=== PATIENT | female | born 1990 | race Caucasian/White ===

== ENCOUNTER 2018-12-20 05:28 | Emergency (ER) | payer OTHER ==
[~2018-12-20] VITALS: Ht 160 cm; Wt 44.5 kg
[2018-12-20 05:34] VITALS: Ht 160 cm; Wt 44.5 kg
[2018-12-20 06:04] VITALS: BP 122/76
== END 2018-12-20 06:04 | disposition home or self-care (01) ==
LOC: ED 05:28
DX: L30.9 Dermatitis, unspecified (principal)